=== PATIENT | male | born 1970 | race Caucasian/White ===

== ENCOUNTER 2023-04-18 08:00 | Emergency (ER) | payer OTHER, SELFPAY ==
[2023-04-18] VITALS (9 sets, daily range): BP systolic 88–152; BP diastolic 54–95
--- NOTE | 2023-04-18 08:53 | ED.GENMED ---
History of Present Illness
General
Chief Complaint: Chest Pain
Source: patient
Exam Limitations: none
Time Seen by Provider: 04/18/23 08:53
Travel History
Have you had any contact with someone who has COVID-19?: No
Do you have any symptoms of coronavirus? Fever > 100 degrees, chills, cough, shortness of breath, sore throat, loss of taste or smell, muscle aches, or headache?: No
History of Present Illness
History of Present Illness:
53-year-old male presents with sudden onset of left scapular pain with radiation to the shoulder and a dull ache in the upper arm. Started at 730 this morning. Started while standing at work. 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 Nonexertional.
Nonpleuritic. Got slightly diaphoretic with this although has gotten diaphoretic from pain in the past. States he had slight shortness of breath but thought this might be just from his pain. Symptoms have improved remarkably but are still there
somewhat. He also notes some increased pain with turning his head to the left to look at his .
Past History
Past History
ED Past Medical History: HTN and Hypercholesterolemia
ED Past Surgical History: None
Social History
Tobacco: Non-smoker
Alcohol: Occasional
Drug: None
Personal:
Living: with family
Employment: Employed
Family History
Family History: CAD
Review of Systems
Review of Systems
All Other Systems: Not applicable
Cardiac: Denies palpitations or syncope
ABD/GI: Reports no symptoms
Phy Exam
Physical Exam
Physical Exam:
GENERAL: Alert and oriented in no apparent distress
EYE: Orbits normal.
NECK: Supple, no carotid bruit
CARDIAC: Regular rate and rhythm without any obvious murmurs.. Good upper extremity pulses bilaterally
LUNGS: Clear breath sounds,normal
ABDOMEN: Soft, without focal tenderness or distention
NEUROLOGICAL: Alert and oriented , grossly non-focal. Upper extremity strength normal. Security Guard normal. Extend flexion at the wrist normal. Interosseous intact. Light touch intact
SKIN: Warm and dry, no rash or lesion, no discoloration, skin intact.
MUSCULOSKELETAL: No edema,no deformity.Good color. Some mild tenderness over the left lower medial scapula
PSYCH: Normal and appropriate interaction.
Scores
Heart Score for Chest Pain Patients
STEMI patient?: No
History: Slightly or Non-Suspicious
ECG: Nonspecific Repolarization
Age: >45 - <65 years
Risk Factors: 1 or 2 Risk Factors
Troponin: </= Normal Limit
Heart Score for Chest Pain Patients: 3
Heart Score Risk: 2.5% MACE over next 6 weeks
Course
Orders/Labs/Results
Orders:
Orders
04/18/23 08:06
Electrocardiogram (*1) Urgent
Reason for Study: Chest Pain
EKG- Treatment ONCE
04/18/23 08:44
CMP [Comprehensive Metabolic Panel] Urgent
Complete Blood Count/With Diff Urgent
Troponin I Urgent
04/18/23 09:09
CT Chest Angio W/wo Iv Contras Urgent
Comment:
Reason For Exam: Sudden left scapular pain
04/18/23 09:10
0.9% Sodium Chloride 500 ml [Nss] 500 ml IV BOLUS
04/18/23 11:37
Electrocardiogram (*1) Stat
Reason for Study: Other
Other Reason for Exam: chest pain
EKG- Treatment ONCE
04/18/23 12:59
Troponin I Urgent
Abnormal Lab Results
04/18/23
08:44
Absolute Lymphs (auto) 0.7 L 10^3/uL
(1.2-3.4)
Absolute Monos (auto) 0.7 H 10^3/uL
(0.1-0.6)
Lymphocytes % 13.1 L %
(20.5-51.1)
Monocytes % 14.7 H %
(1.7-9.3)
BUN 27 H mg/dl
(9-20)
Glucose 115 H mg/dl
(70-99)
04/18/23 08:44
04/18/23 08:44
Vital Signs
Initial and Last Documented VS:
Initial Vital Signs
Temp Pulse Resp BP Pulse Ox
98.1 F 75 18 152/90 99
04/18/23 08:01 04/18/23 08:01 04/18/23 08:01 04/18/23 08:01 04/18/23 08:01
Last Documented Vital Signs
Temp Pulse Resp BP Pulse Ox
98.1 F 66 14 143/86 97
04/18/23 08:01 04/18/23 15:30 04/18/23 15:30 04/18/23 15:00 04/18/23 15:30
MDM/Problems Addressed
Differential Diagnosis Includes:
Sudden left scapular pain with radiation to the shoulder and arm associated with mild diaphoresis. Differential would include cardiac. Doubt given nonexertional sudden pain and some positional neck pain but in the differential. With sudden back
pain dissection has to be entertained until proven otherwise. Most likely radiculopathy/musculoskeletal however workup in progress
*Pulse Oximetry
Patient hypoxic: no
*EKG
Interpreted by ED Provider?: Yes
Interpretation: abnormal
Comparison EKG: changes noted
Heart Rate: 68
Rate: normal
Rhythm: sinus
[place]: normal axis
Interval: normal interval
QRS Pattern: normal QRS
Ischemia: other (Unusual P axis)
*Critical Care Note
Total Time (30-74mins, 75-104mins- exclusive of procedures): Not Applicable
Data Reviewed
Review of Other/Old Records Reveals: Testing
Update Note
Update Note:
Repeat EKG normal sinus rhythm with new P wave axis. No acute changes. Patient has been stable throughout his ER stay. He did have a near syncopal episode with the IV draw for his second troponin although this clearly appeared vasovagal and self
resolved. Stable for discharge to follow-up.
Reviewed new P axis with cardiology. Again near syncope here clearly was vasovagal
ED Attending Note
-
Portions of this chart may have been created with voice recognition software.� Occasional wrong word or��sound alike� substitutions may have occurred due to the inherent limitations of voice recognition software.
Discharge Plan
Departure
Patient Disposition: Home (Routine Discharge)
Date of Disposition: 04/18/23
Time of Disposition: 15:19
Patient with high blood pressure during this ER visit?: Yes
Discharge Problem:
Scapular/shoulder pain, Near syncope, Pulmonary nodule
Instructions: Near Fainting (DC), Chest Pain CBC Follow Up, BLOOD PRESSURE
Prescriptions:
No Action
atorvastatin 20 MG tablet
20 mg PO DAILY
amlodipine 5 MG tablet
5 mg PO DAILY
promethazine 25 MG tablet
25 mg PO HS
aspirin 81 MG tablet,chewable
81 mg PO DAILY
Referrals:
Luh Piña PA [Family Provider] - Follow up in 2-3 days
Activity Restrictions/Additional Instructions:
The cardiology group should call you Thursday for close follow-up
Make sure you follow-up the pulmonary nodule as discussed
[2023-04-18 09:04] LABS: % Basophils 0.4 % (0-2); % Immature Granulocytes 0.4 % (0-0.5); % Lymphocytes 13.1 % (20.5-51.1); % Monocytes 14.7 % (1.7-9.3); % Neutrophils 66.4 % (42.2-75.2); Absolute Eosinophils 0.3 10^3/uL (0-0.7); Absolute Lymphocytes 0.7 10^3/uL (1.2-3.4); Absolute Monocytes 0.7 10^3/uL (0.1-0.6); Absolute Neutrophils 3.3 10^3/uL (1.4-6.5); Hematocrit 43.5 % (39.0-52.0); Mean Corp Hgb Conc. 34.5 g/dL (33.0-37.0); Mean Corpuscular Hgb 29.7 pg (27.0-31.0); Mean Corpuscular Volume 86.1 fL (80.0-94.0); Mean Platelet Volume 9.4 fL (7.4-10.4); Nucleated Red Blood Cells % 0 % (-); Platelet Count 202 10^3/uL (130-400); Red Blood Cell Count 5.05 10^6/uL (4.70-6.10); Red Cell Dist. Width 13.5 % (11.5-14.5)
[2023-04-18 09:20] LABS: ALT (SGPT) 35 U/L (0-50); AST (SGOT) 35 U/L (17-59); Albumin 4.4 g/dl (3.5-5.0); Alkaline Phosphatase 83 U/L (38-126); Blood Urea Nitrogen 27 mg/dl (9-20); Calcium 9.4 mg/dl (8.4-10.2); Carbon Dioxide 26 mmol/L (22-30); Chloride 105 mmol/L (98-107); Glucose 115 mg/dl (70-99); Potassium 4.6 mmol/L (3.5-5.1); Sodium 135 mmol/L (135-145); Total Bilirubin 0.8 mg/dl (0.2-1.3); Total Protein 7.7 g/dl (6.3-8.2); eGFR > 60.00
[2023-04-18 09:24] LABS: Troponin I < 0.012 ng/ml
[2023-04-18] MEDS: NSS 500 IV (10:16)
[2023-04-18 13:47] LABS: Troponin I < 0.012 ng/ml
--- NOTE | 2023-04-27 10:49 | OID.L.PAT ---
Pulmonary Nodule Pat Letter
- -
04/27/23
SANDRA TAYLOR
[address]
[place] [address]
Dear SANDRA,
A pulmonary nodule was seen on an imaging study done by [facility]. This was reviewed by the [facility] Pulmonary Nodule Advisory Board and the following recommendation was made:
Recommendation: Follow up CT Chest in 3-4 months
If you have any questions, please do not hesitate to contact your primary care physician. If you are in need of a Physician, you can go to [email or web address] and click on 'Find a Provider'. Type 'Family Medicine' in the search.
Oncology Nurse Navigator
[facility]
[phone]
--- NOTE | 2023-04-27 10:49 | OID.L.REC ---
Pulmonary Nodule Follow Up
- Recommendation
04/27/23
Pulmonary Nodule Review Recommendations
Your patient, SANDRA TAYLOR, had a pulmonary nodule seen on an imaging study done on 04/18/23 in the [facility] Emergency Room.
This was reviewed by the [facility] Pulmonary Nodule Advisory Board and the following recommendation was made:
Recommendation: Follow up CT Chest in 3-4 months
If you have any questions please do not hesitate to contact us.
Sincerely,
Oncology Nurse Navigator
[facility]
[phone]
== END 2023-04-18 15:00 | disposition home or self-care (01) ==
LOC: EMR 08:00
PROVIDERS: Emergency Medicine; EMERGENCY PHYSICIAN Emergency Medicine; FAMILY PHYSICIAN Physician Assistant
DX: R91.1 Solitary pulmonary nodule (principal); R55 Syncope and collapse; M25.512 Pain in left shoulder; I10 Essential (primary) hypertension
CPT/HCPCS: 99285; 96360; 96361; 71275; 80053; 84484; 85025; 93005; Q9967